=== PATIENT | female | born 1990 | race Caucasian/White ===

== ENCOUNTER 2018-10-11 09:47 | Emergency (ER) | payer BC, MEDICARE, MEDICAID ==
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
[2018-10-11 10:46] LABS: ABS Basophils 0 10^3/ul (0-0.2); ABS Eosinophils 0 10^3/ul (0-0.6); ABS Lymphocytes 0.5 10^3/ul (1.0-4.8); ABS Monocytes 0.4 10^3/ul (0-0.8); ABS Neutrophils 5.8 10^3/ul (1.5-7.7); ABS Nucleated RBC 0 10^3/ul; Eosinophil % 0.3 %; Hematocrit 39 % (35-47); Hemoglobin 13.1 g/dl (12.0-16.0); Lymphocyte % 7.4 %; Mean Corpuscular HGB Conc 34 g/dl (31-36); Mean Corpuscular Hemoglobin 29 pg (27-31); Mean Corpuscular Volume 87 fL (80-97); Mean Platelet Volume 8.7 fL (7.4-10.4); Nucleated Red Blood Cells % 0; Platelet Count 162 10^3/ul (150-450); Red Blood Count 4.47 10^6/ul (4.00-5.40); Red Cell Distribution Width 13 % (10.5-15); White Blood Count 6.7 10^3/ul (3.5-10.8)
[2018-10-11 11:05] LABS: Urine Appearance Cloudy; Urine Blood 1+ (Negative); Urine Color Yellow; Urine Ketones Trace (Negative); Urine Protein Negative (Negative); Urine Red Blood Cell Trace(0-2/hpf) (Absent); Urine Specific Gravity 1.012 (1.010-1.030); Urine Urobilinogen Negative (Negative); Urine White Blood Cell Trace(0-5/hpf) (Absent)
--- NOTE | 2018-10-11 12:51 | ED ---
Progress - Progress Note Progress Note: This pt was signed out by Dr. Burt, pending disposition, awaiting mental health evaluation. Pt had a mental health evaluation and her case was reviewed by Dr. Delvalle, psychiatrist. Material Requisitioner spoke with pt's Life Skills Aide and therapist and they agree with discharge. Dr. Delvalle cleared the pt for discharge with outpatient follow up. Nyquil purchased by pt will be secured prior to her getting discharged. Re-Evaluation - Re-Evaluation First Eval Re-Evaluation Time: 11:08 Comment: Pt is medically cleared. Course/Dx - Diagnoses Provider Diagnoses: Mood disorder Discharge - Sign-Out/Discharge Documenting (check all that apply): Patient Departure - Discharge home, Receiving Sign-Out Receiving patient FROM: Rodney Burt - Discharge Plan Condition: Stable Disposition: HOME Referrals: Krystyna Suarez MD [Primary Care Provider] - - Attestation Statements Document Initiated by Scribe: Yes Documenting Scribe: Neva Julian Provider For Whom Scribe is Documenting (Include Credential): Zander Frederick MD Scribe Attestation: Neva Guevara, scribed for Zander Frederick MD on 10/11/18 at 1633. Status of Scribe Document: Ready
[2018-10-11 15:14] VITALS: BP 107/69
== END 2018-10-11 15:27 | disposition home or self-care (01) ==
LOC: ED 09:47
DX: F39 Unspecified mood [affective] disorder (principal); F32.9 Major depressive disorder, single episode, unspecified; Z81.8 Family history of other mental and behavioral disorders
CPT/HCPCS: 36415; 80053; 80307; 80320; 80329; 81003; 81015; 84443; 85025; 87086; 99284; G0480

== ENCOUNTER 2020-01-06 10:45 | Emergency (ER) | payer BC, MEDICARE, MEDICAID ==
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
[2020-01-06] MEDS ORDERED: Ketorolac INJ* 30 MG/ML 1 ML VIAL IV PUSH ONE (10:52)
[2020-01-06] MEDS ORDERED: NS 0.9% 1000 ML** 1,000 ML IV ONE ×2 (10:52→11:58)
[2020-01-06 11:08] LABS: Urine Appearance Clear; Urine Bilirubin Negative (Negative); Urine Blood 2+ (Negative); Urine Color Straw; Urine Glucose Negative (Negative); Urine Ketones Negative (Negative); Urine Nitrite Negative (Negative); Urine Protein Negative (Negative); Urine Specific Gravity 1.005 (1.010-1.030); Urine Urobilinogen Negative (Negative)
[2020-01-06 11:10] LABS: ABS Eosinophils 0.2 10^3/ul (0-0.6); ABS Lymphocytes 0.9 10^3/ul (1.0-4.8); ABS Monocytes 0.5 10^3/ul (0-0.8); ABS Neutrophils 4.8 10^3/ul (1.5-7.7); Hematocrit 38 % (35-47); Hemoglobin 12.9 g/dL (12.0-16.0); Lymphocyte % 13.6 %; Mean Corpuscular HGB Conc 34 g/dL (31-36); Mean Corpuscular Hemoglobin 29 pg (27-31); Mean Corpuscular Volume 85 fL (80-97); Mean Platelet Volume 8.2 fL (7.4-10.4); Platelet Count 186 10^3/uL (150-450); Red Blood Count 4.41 10^6 /uL (3.70-4.87); Red Cell Distribution Width 13 % (10-15); White Blood Count 6.4 10^3/uL (3.5-10.8)
[2020-01-06 11:11] LABS: Urine Bacteria Absent (Absent); Urine Red Blood Cell 1+(3-5/hpf) (Absent); Urine White Blood Cell Trace(0-5/hpf) (Absent)
[2020-01-06] MEDS ORDERED: Ondansetron INJ* 2 MG/ML VIAL IV ONE ×2 (11:19→12:03)
[2020-01-06 11:27] LABS: Albumin 4.2 g/dL (3.2-5.2); Albumin/Globulin Ratio 1.4 (1-3); BUN/Creatinine Ratio 14.3 (8-20); C Reactive Protein 7.66 mg/L (<8.01); Calcium 9.2 mg/dL (8.6-10.3); EGFR African American 121.5 (>60); EGFR Non-African American 100.4 (>60); Globulin 2.9 g/dL (2-4); Total Bilirubin 0.3 mg/dL (0.2-1.0); Total Protein 7.1 g/dL (6.4-8.9)
[2020-01-06 11:34] LABS: HCG Pregnancy 0.6 mIU/mL
[2020-01-06] MEDS ORDERED: Morphine 4 MG/ML VIAL (1 ml) 4 MG/ML VIAL IV ONE (12:03)
[2020-01-06] MEDS ORDERED: Iohexol 300* (CONTRAST) 10 ML SDV IV ONE (15:00)
[2020-01-06 16:38] VITALS: BP 113/78
== END 2020-01-06 16:37 | disposition home or self-care (01) ==
LOC: ED 10:45
DX: R10.31 Right lower quadrant pain (principal); R11.0 Nausea; Z79.899 Other long term (current) drug therapy
CPT/HCPCS: 36415; 74177; 76856; 80053; 81003; 81015; 84702; 85025; 86140; 87086; 96361; 96374; 96375; 96376; 99283; J1885; J2270; J2405; Q9967

== ENCOUNTER 2020-02-20 15:35 | Inpatient (IN) | payer BC, MEDICARE, MEDICAID ==
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
[2020-02-20 17:41] LABS: ABS Basophils 0.1 10^3/ul (0-0.2); ABS Lymphocytes 0.7 10^3/ul (1.0-4.8); ABS Monocytes 0.7 10^3/ul (0-0.8); ABS Neutrophils 11.9 10^3/ul (1.5-7.7); Eosinophil % 0.3 %; Hematocrit 39 % (35-47); Hemoglobin 13.2 g/dL (12.0-16.0); Lymphocyte % 5.1 %; Mean Corpuscular HGB Conc 34 g/dL (31-36); Mean Corpuscular Hemoglobin 29 pg (27-31); Mean Corpuscular Volume 85 fL (80-97); Mean Platelet Volume 8.8 fL (7.4-10.4); Platelet Count 229 10^3/uL (150-450); Red Blood Count 4.57 10^6 /uL (3.70-4.87); Red Cell Distribution Width 13 % (10-15); White Blood Count 13.3 10^3/uL (3.5-10.8)
[2020-02-20 17:59] LABS: ALT 14 U/L (7-52); AST 19 U/L (13-39); Albumin 4.5 g/dL (3.2-5.2); Albumin/Globulin Ratio 1.3 (1-3); Alkaline Phosphatase 73 U/L (34-104); Anion Gap 8 mmol/L (2-11); Blood Urea Nitrogen 9 mg/dL (6-24); CO2 Carbon Dioxide 24 mmol/L (22-32); Calcium 9.3 mg/dL (8.6-10.3); Chloride 106 mmol/L (101-111); EGFR African American 101.2 (>60); EGFR Non-African American 83.6 (>60); Globulin 3.4 g/dL (2-4); Glucose 97 mg/dL (70-100); Potassium 3.6 mmol/L (3.5-5.0); Sodium 138 mmol/L (135-145); Total Protein 7.9 g/dL (6.4-8.9)
[2020-02-20 18:04] LABS: Acetaminophen < 15 mcg/mL; Alcohol < 10 mg/dL (<10); Salicylate < 2.50 mg/dL (<30)
[2020-02-20 18:06] LABS: HCG Pregnancy < 0.60 mIU/mL
[2020-02-20 18:15] LABS: TSH (Thyroid Stimulating Horm) 0.77 mcIU/mL (0.34-5.60)
[2020-02-20 18:53] LABS: Urine Appearance Cloudy; Urine Bilirubin Negative (Negative); Urine Blood 1+ (Negative); Urine Color Yellow; Urine Glucose Negative (Negative); Urine Ketones Negative (Negative); Urine Nitrite Negative (Negative); Urine Protein Negative (Negative); Urine Specific Gravity 1.005 (1.010-1.030); Urine Urobilinogen Negative (Negative)
[2020-02-20 19:02] LABS: Urine Bacteria 3+ (Absent); Urine Red Blood Cell 2+(6-10/hpf) (Absent); Urine Squamous Epithelial Cell Present (Absent); Urine White Blood Cell 1+(6-10/hpf) (Absent)
[2020-02-20 19:10] LABS: Urine Benzodiazepine Screen None Detected (None Detect); Urine Opiates Screen None Detected (None Detect)
[2020-02-20] MEDS ORDERED: Butalb/Acetamin/Caff TAB* 1 TAB PO ONE (20:34)
[2020-02-20] MEDS ORDERED: Al Hydrox/Mg Hydrox/Simet LIQ* 30 ML UDC PO PRN (23:27)
[2020-02-20] MEDS ORDERED: ELETRIPTAN 40 MG PO ONE (23:30)
[2020-02-21 08:48] VITALS: BP 112/82
[2020-02-21] MEDS: Vitamin THERAPEUTIC TAB PO SCH (11:23)
[2020-02-21] MEDS ORDERED: ELETRIPTAN 40 MG PO PRN (12:23)
[2020-02-21] MEDS ORDERED: Cetirizine* 10 MG TAB PO PRN (12:23)
[2020-02-21] MEDS: clonazePAM TAB(*) 0.5 MG PO PRN (17:26)
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
[2020-02-21] MEDS ORDERED: ST JOHNS WORT PO SCH (21:00)
[2020-02-21] MEDS: NON FORMULARY MED2 PO SCH (21:07)
[2020-02-21] MEDS: Acetaminophen TAB* 325 MG PO PRN (21:18)
[2020-02-22] MEDS ORDERED: ELETRIPTAN 40 MG PO ONE (06:45)
[2020-02-22 08:17] LABS: HDL Cholesterol 53.4 mg/dL
[2020-02-22] MEDS: Vitamin THERAPEUTIC TAB PO SCH (10:55)
[2020-02-22] MEDS: NON FORMULARY MED2 PO SCH ×2 (10:56→20:35)
[2020-02-22] MEDS ORDERED: PTO: ELETRIPTAN 40 MG (NF) PO PRN (13:03)
--- NOTE | 2020-02-22 13:49 | PN ---
BSU: Group Therapy Note - Service Type Service Type: [id number] Group Psychotherapy - Cognitive Behavioral Group Therapy ( CBT):Patient was attentive and participatory in CBT programming this morning, and remained in good behavioral control. Patient expressed positive insights regarding relevant treatment interventions and goals.
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
[2020-02-22] MEDS: Acetaminophen TAB* 325 MG PO PRN (20:35)
[2020-02-23] MEDS: NON FORMULARY MED2 PO SCH (08:46)
[2020-02-23] MEDS: Vitamin THERAPEUTIC TAB PO SCH (08:46)
[2020-02-23] MEDS: clonazePAM TAB(*) 0.5 MG PO PRN (12:39)
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
== END 2020-02-23 16:30 | disposition home or self-care (01) | DRG 753 ==
LOC: ED 15:35 → BSU 19:15 → ED 21:18
PROVIDERS: ADMIT Psychiatry & Neurology Psychiatry; ATTEND Psychiatry & Neurology Psychiatry
DX: F39 Unspecified mood [affective] disorder (principal); R45.851 Suicidal ideations; R45.850 Homicidal ideations; F84.0 Autistic disorder; F32.9 Major depressive disorder, single episode, unspecified; F41.9 Anxiety disorder, unspecified; F90.9 Attention-deficit hyperactivity disorder, unspecified type; F42.9 Obsessive-compulsive disorder, unspecified; G43.909 Migraine, unspecified, not intractable, without status migrainosus; J30.2 Other seasonal allergic rhinitis; Z81.8 Family history of other mental and behavioral disorders; Z81.1 Family history of alcohol abuse and dependence
CPT/HCPCS: 36415; 80053; 80061; 80307; 80320; 80329; 81003; 81015; 83036; 84443; 84702; 85025; 87086; 90853; 99222; 99233; 99238; 99284; A9270-GY; G0480